=== PATIENT | female | born 1985 | race Caucasian/White ===

== ENCOUNTER 2016-03-09 20:38 | Inpatient (IN) | payer OTHER ==
[2016-03-09] MEDS ORDERED: OXYTOCIN IN LR 500 ML IV ONE (21:31)
[2016-03-09] MEDS ORDERED: IV START KIT ONE (21:34)
[2016-03-09] MEDS ORDERED: OXYTOCIN 10 UNITS/ML VIAL ONE (21:35)
[2016-03-09] MEDS ORDERED: LIDOCAINE 1% (PRES FREE) 30 ML VIAL ONE (21:35)
[2016-03-09] MEDS ORDERED: PUMP TUBING ONE (21:35)
[2016-03-09] MEDS ORDERED: MINERAL OIL 25 ML BOT ONE (21:35)
[2016-03-09] MEDS ORDERED: LIDOCAINE Viscous 2% 15 ML UDCUP ONE (21:35)
[2016-03-09] MEDS: LACTATED RINGERS 1,000 ML IV PRN (22:00)
[2016-03-09] MEDS: ACETAMINOPHEN 325 MG TABLET PO PRN (22:54)
[2016-03-09 23:48] LABS: HEMATOCRIT 33.7 % (37.0-47.0); HEMOGLOBIN 11.1 gm/l (12.0-16.0); MEAN CELL VOLUME 85.3 fl (81.0-99.0); MEAN CORPUSCULAR HEMOGLOBIN 28.1 pg (27.0-31.0); MEAN CORPUSCULAR HGB CONC 32.9 g/dl (33.0-37.0)
[2016-03-10] MEDS: ACETAMINOPHEN 325 MG TABLET PO PRN ×2 (04:38→08:45)
--- NOTE | 2016-03-10 06:30 | HP ---
ABIMBOLA AYALA [id number] DATE OF ADMISSION: March 09, 2016 ADMITTING DIAGNOSES: 1. at term post dates. 2. Recent flu-like syndrome. 3. Category 1 strip. 4. Spontaneous rupture of membranes. 5. Onset of early labor. 6. Negative beta strep status. HISTORY OF PRESENT ILLNESS: Patient is a 31-year-old , white female experiencing her first . She is due on March 05, 2016 which makes her 40 weeks and 4 days. She presents to the birthing center this evening at 8:00 with a history of recent spontaneous rupture of membranes. Fluid is clear. On monitoring, she is having occasional contractions, roughly every four minutes. Category 1 strip with accelerations and moderate variability. Vaginal examination performed by the nurse shows a 1 cm dilated, 70%, approximately a -2/-3 vertex presentation. has been unremarkable. She has been euglycemic, basically normotensive with a single reading of elevation of blood pressure today while she was being seen. She denies any preeclamptic type symptoms. She was recently seen in the office on Saturday for flu-like syndrome and was given promethazine and antidiarrheal medication. She has had approximately a 25 pound weight gain. PAST MEDICAL HISTORY: She has had: 1. Laparoscopy for ovarian cyst. 2. Two surgeries on her right hand/wrist area for a cyst and then carpal tunnel. ALLERGIES: NO KNOWN DRUG ALLERGIES. MEDICATIONS: 1. As noted. 2. Routine vitamins. REVIEW OF SYSTEMS: Is complete and unremarkable. FAMILY HISTORY: Is noncontributory. PHYSICAL EXAM: VITAL SIGNS: Her vital signs are normal on admission. Blood pressure 118/79. Pulse is 100. She is afebrile. ABDOMEN: Gravid uterus measuring 40 cm. Estimated weight of 7.5 to 8 pounds. VAGINAL: Examination performed by the nurse on admission see the History of Present Illness. LABORATORY EVALUATION: On admission, patient's hematocrit is pending. She is negative beta strep status. Hepatitis B screen negative. VDRL, negative. HIV screen, negative. STD screens, negative. Glucose screen within normal limits. She had second trimester screening for aneuploidy which was negative. IMPRESSION: 1. at term post dates. 2. Spontaneous rupture of membranes. 3. Onset of early labor. 4. Category 1 strip. 5. Negative beta strep status. 6. Requesting minimal intervention at this time. PLAN: Patient is admitted and will be started on IV fluids at her request. We will watch the blood pressure particularly closely since she had elevated readings today earlier in the office although at this time it is normal.
--- NOTE | 2016-03-10 08:13 | PDOC36 ---
Provider Note Subject: SROM X12hr Note: contractions mild and 5-6 min, slept at intervals. no discomfort. Category 1 strip. VE by me 2cm, soft 70%, posterior, vtx -3. Recommend augmentation with SROM. They accept recommendation.
[2016-03-10] MEDS ORDERED: LACTATED RINGERS 1,000 ML IV SCH ×2 (08:15→20:43)
[2016-03-10] MEDS: CALCIUM CARBONATE 500 MG TAB.CHEW PO PRN ×4 (08:44→22:01)
[2016-03-10] MEDS ORDERED: MISOPROSTOL 200 MCG TABLET ONE (09:00)
[2016-03-10] MEDS: OXYTOCIN IN LR 500 ML IV PRN ×3 (09:23→21:43)
[2016-03-10] MEDS ORDERED: EPIDURAL PUMP SET ONE (19:35)
[2016-03-10] MEDS ORDERED: FENTANYL/ROPIVACAINE EPIDURAL 250 ML EP ONE (19:36)
--- NOTE | 2016-03-10 19:36 | PDOC36 ---
Provider Note Subject: labor update Note: 24 hr SROM, on pitocin about 8+ hr, u/c reg q3min and intensifying, pt "miserable now" Category 1, VE 3+cm, 70%, -2 IMP: SROM >24hrs, latent phase with some changes in exam Plan: epidural and continue pitocin.
[2016-03-10] MEDS: LACTATED RINGERS 1,000 ML IV PRN (19:49)
[2016-03-10] MEDS ORDERED: FENTANYL/ROPIVACAINE EPIDURAL 250 ML EP SCH (20:00)
[2016-03-10] MEDS ORDERED: EPIDURAL PROCEDURE TRAY ONE (20:19)
[2016-03-10] MEDS ORDERED: LACTATED RINGERS 500 ML IV PRN (20:43)
[2016-03-10] MEDS ORDERED: EPHEDRINE SULFATE 50 MG/ML 1ML VIAL IV PRN (20:43)
[2016-03-10] MEDS ORDERED: METOCLOPRAMIDE HCL 5 MG/ML 2ML VIAL IV PRN (20:43)
[2016-03-10] MEDS ORDERED: DIPHENHYDRAMINE HCL 50 MG/1 ML VIAL IV PRN (20:43)
[2016-03-10] MEDS ORDERED: NALOXONE HCL 0.4 MG/ML VIAL IV PRN (20:43)
[2016-03-10] MEDS ORDERED: ONDANSETRON 4 MG/2ML 2 ML VIAL IV PRN (20:43)
[2016-03-10] MEDS ORDERED: NALBUPHINE HCL 20 MG/ML AMP IV PRN (20:43)
[2016-03-10] MEDS ORDERED: SODIUM CHLORIDE 0.9% 500 ML IV PRN (20:43)
[2016-03-10 20:47] VITALS: BMI 36.5
[2016-03-11] MEDS: OXYTOCIN IN LR 500 ML IV PRN (00:02)
[2016-03-11] MEDS: CALCIUM CARBONATE 500 MG TAB.CHEW PO PRN ×2 (01:42→06:17)
[2016-03-11] MEDS: LACTATED RINGERS 1,000 ML IV PRN (02:00)
[2016-03-11] MEDS ORDERED: FENTANYL 100 MCG/2 ML VIAL ONE ×2 (02:27→08:29)
[2016-03-11] MEDS ORDERED: LORAZEPAM 2 MG/ML 1ML SDV IV ONE (02:27)
[2016-03-11] MEDS ORDERED: ROPIVACAINE 0.5% 30 ML VIAL ONE (02:29)
--- NOTE | 2016-03-11 04:43 | PDOC36 ---
Provider Note Subject: Labor update Note: Complaining of severe pressure and definitely uncomfortable. Wants a c-sec. Category 1 strip, u/c q3min, VE by me, rim on pt right, +1 station, OA some caput, adeq pelvis, EFW 8+. Epidural has been bolused X1 IMP--SROM, slow labor progress, tolerating labor, mom is not-anxious Plan--encourage to initiate pushing, offered dose of IV ativan, if cannot tolerate will have SECURITY TECHNICIAN bolus to relieve lower pelvic "pressure". labor "down". Currently c-sec crew awaiting who is pushing now. Will deliver thereafter either as operative vaginal del or primary c-sec
[2016-03-11] MEDS ORDERED: NITROGLYCERIN IV ONE (08:17)
[2016-03-11] MEDS ORDERED: DEXTROSE IV ONE (08:17)
[2016-03-11] MEDS ORDERED: ROPIVACAINE 0.75% 20 ML AMP ONE ×2 (08:26→10:46)
[2016-03-11] MEDS ORDERED: MORPHINE SULFATE (DURAMORPH) 1 MG/ML 10ML AMP ONE (08:27)
[2016-03-11] MEDS ORDERED: CEFAZOLIN SODIUM 1,000 MG VIAL ONE (08:43)
[2016-03-11] MEDS ORDERED: EPHEDRINE SULFATE UD SYR 25 MG 25 MG/5 ML SYRINGE IV ONE ×2 (08:45→09:23)
[2016-03-11] MEDS ORDERED: OXYTOCIN 10 UNITS/ML VIAL ONE ×5 (08:52→09:45)
[2016-03-11] MEDS ORDERED: ONDANSETRON 4 MG/2ML 2 ML VIAL ONE (09:07)
[2016-03-11] MEDS ORDERED: DIPHENHYDRAMINE HCL 50 MG/1 ML VIAL ONE (09:07)
[2016-03-11] MEDS ORDERED: METHYLENE BLUE 1% 1ML VIAL ONE (09:39)
[2016-03-11] MEDS ORDERED: KETOROLAC TROMETHAMINE 30 MG/ML 1 ML VIAL ONE (09:54)
[2016-03-11] MEDS ORDERED: ONDANSETRON 4 MG/2ML 2 ML VIAL IV PRN ×2 (10:28→11:15)
[2016-03-11] MEDS ORDERED: OXYTOCIN IN LR 500 ML IV ONE (10:28)
[2016-03-11] MEDS ORDERED: OXYCODONE HCL 5 MG TABLET PO PRN (10:28)
[2016-03-11] MEDS ORDERED: LANOLIN 50 APPLIC/7G TUBE TP PRN (10:28)
[2016-03-11] MEDS ORDERED: DIPHENHYDRAMINE HCL 25 MG CAPSULE PO PRN (10:28)
[2016-03-11] MEDS ORDERED: MEASLES,MUMPS&RUBELLA VACCINE 0.5 ML VIAL SUB-Q V ONE (10:28)
[2016-03-11] MEDS ORDERED: PROMETHAZINE HCL 25 MG/ML VIAL IM PRN ×2 (10:28→11:15)
[2016-03-11] MEDS ORDERED: DIPHENHYDRAMINE HCL 50 MG/1 ML VIAL IV PRN ×2 (10:28→11:15)
[2016-03-11] MEDS ORDERED: DIPHTH,PERTUSS(ACELL),TET VAC 0.5 ML VIAL IM V ONE (10:28)
[2016-03-11] MEDS ORDERED: LACTATED RINGERS 1,000 ML IV SCH (10:30)
--- NOTE | 2016-03-11 10:40 | PDOC37 ---
Procedure: primary Section Date of Procedure: 03/11/16 Start Time: 8:30 Preoperative Diagnosis: 1. 40 week intrauterine . 2. failure of descent ,impacted head Postoperative Diagnosis: Same plus nuchal cord X2 Surgeon: Chintan Wheeler Assist: Zoe River Indication for Procedure: 31 year old, at 40 weeks 4 days with failure to progress Anesthesia: epidural with Duramorph Complications: None Estimated Blood Loss:1000 mLs IV Fluids: 1000 mLs of LR Medications: 2 gm of Ancef for routine prophylaxis. 40 units of Pitocin. cytotec 600mg pr Urine Output: 250 mLs of clear urine, prieto kinked and not functioning during entry into abd, distended and compromising visualization and safety of surgery so incidental cystomy in dome done to decompress bladder. repaired and 350cc water tight test negative Findings: Fluid . Normal uterus, ovaries, and tubes. Procedure: The patient was taken to the operating room where epidural anesthesia was found to be adequate. She was then prepared and draped in the normal sterile fashion in the dorsal supine position with a leftward tilt. A timeout was performed. A Pfannensteil skin incision was then made with the scalpel and carried through to the underlying layer of fascia with the bovie. The fascia was incised in the midline and the incision extended laterally with the Ma scissors. The superior aspect of the fascial incision was then grasped with the Crystal clamps, elevated, and the underlying rectus muscles dissected off bluntly and sharply where needed. Attention was then turned to the inferior aspect of the incision which, in a similar fashion, was grasped, tented up with the Crystal clamps, and the rectus muscle dissected off bluntly and sharply with Ma scissors. The rectus muscles were then in the midline, and the peritoneum was identified and entered bluntly. The peritoneal incision was then extended with good visualization of the bladder. The bladder blade was then inserted and the vesicouterine peritoneum identified, grasped with pick- ups and entered sharply with the Metzenbaum scissors. The incision was then extended laterally and the bladder flap created digitally. The bladder blade was then reinserted and the lower uterine segment incised in a transverse fashion with the scalpel. The uterine incision was then extended laterally by pulling superolaterally on both sides. Membranes were ruptured and fluid was clear. The bladder blade was removed the 's head was flexed out of position and delivered atraumatically. The nose and mouth were suctioned with bulb suction and the cord was clamped and cut. The infant was handed off to the waiting staffing mgr. The placenta was then delivered with gentle cord traction. The uterus was then exteriorized and cleared of all clots and debris. The uterine incision was repaired with 0 vicryl in a running, locked fashion. A second layer of the same suture was used in an imbricating fashion to obtain excellent hemostasis. The gutters were cleared of all clots. The uterus was returned to the abdomen. Thr cystomy was oversewed with 000 chromic. Water tight test with 350cc of methylene blue in NS used The fascia was reapproximated with 0 Vicryl in a running fashion. The subcutaneous tissue was reapproximated with 000plain. The skin was closed with continuous 0000 vicryl The patient tolerated the procedure well. Sponge, lap and needle counts were correct times three. A debriefing was held at the end of the procedure with anesthesia and nursing staff. The patient was taken to the recovery room in stable condition.
[2016-03-11] MEDS ORDERED: HYDROMORPHONE HCL 1 MG/ML SYRINGE IV PRN (11:07)
[2016-03-11] MEDS ORDERED: EPHEDRINE SULFATE 50 MG/ML 1ML VIAL IV PRN (11:15)
[2016-03-11] MEDS ORDERED: NALOXONE HCL 0.4 MG/ML VIAL IV PRN (11:15)
[2016-03-11] MEDS ORDERED: NALBUPHINE HCL 20 MG/ML AMP IV PRN (11:15)
--- NOTE | 2016-03-11 11:50 | OP ---
ABIMBOLA AYALA [id number] DATE OF : 1985 DATE OF OPERATION: 02/08/2017 PREOPERATIVE DIAGNOSES: 1. at postdates with spontaneous rupture of membranes greater than 24 hours failure to progress. 2. Maternal exhaustion. POSTOPERATIVE DIAGNOSES: 1. at postdates with spontaneous rupture of membranes greater than 24 hours failure to progress. 2. Maternal exhaustion. 3. Nuchal cord around the neck twice tight. 4. Failure of Porter catheter to drain bladder adequately intraoperatively requiring drainage of bladder via a cystotomy. 5. Uterine atony mgmt. with cytotec 6. impacted head. PERSONNEL: Chintan Wheeler M.D. GENERATION TECHNICIAN: MAGGY Hutchison ANESTHESIA: Epidural with Duramorph. ANTIBIOTICS: Ancef 2 grams. PROCEDURE DONE: Primary low transverse section, and cystotomy in the dome of the bladder subsequently repaired water test type negative at 350 mL with methylene blue normal saline. DESCRIPTION OF PROCEDURE: The patient was brought to the operating room. She had sequential compression device already inserted. Porter was inside. Because of the impacted head of concern, I placed the "snorke" along the sacral hallow and the posterior part of the head. This was done to help facilitate the delivery from above. She was prepped and draped in a sterile manner. A time out was performed. She had good level of anesthetic, and the procedure was then initiated with making a small curvilinear incision over the lower abdomen. Tissues were dissected sharply and then dissected bluntly with the fingers. Fascia was opened transversely. Muscles were split. The peritoneum is opened carefully. Bladder was attached high on the lower uterine segment.The distended bladder was making visualization difficulty. Attempts at manipulating the Porter in order to provide drainage was unsuccessful. It was decided for both visualization and safety, and without making additional injury to the bladder to do an cystotomy in the dome of the bladder in order to drain it. This was done with a knife in kind of an angle so that there was no direct hole made right in the bladder from the overlying tissue, but rather kind staggered way. This provided improved visualization. The Jere retractor was then placed in the abdomen. Incision was then made across the lower uterine segment extended laterally with the fingers. Membranes were ruptured. The fluid was cleared. Baby at this point could be relatively easily brought up and the head was flexed and with fundal pressure the baby was easily delivered. It had good tone, color, cry, and had a good heart rate. Cord was then milked, and then clamped and then delivered to awaiting pediatric nurse. Apgars 8 and 9. Placenta was then removed with traction and massage of the uterus. The uterus was fairly flaccid in spite of Pitocin administration and then subsequently bled more than normal. Cytotec was then used and placed 600 mg,( one of the tablets was lost in the drapes), so a total of 600 mg was placed per rectum. This provided better uterine tone. The uterus was then closed in two layers. The first running with a 0 Vicryl locked suture from corner to corner. A subsequent suture was then placed. There was one small bladder near the lower edge of the lower uterine segment at the reflection of the bladder. This was individually identified and then sutured.with 000 vicryl Good hemostasis at this point. The incidental cystotomy entry point was identified and over sewed with a single over sewed suture of 3-0 Chromic Knot being tied extra vesicle. A water test was then performed using some methylene blue and 1000 mL of saline and approximately 350 mL of additional fluid were then injected into the bladder, ballooned up. There was no leakage. It was a negative test. The bladder would not decompress. Again, the catheter was kinked and so it was removed. We then had to suture the fascia edges around the somewhat distended bladder. This was done without difficulty. Subcutaneous tissues were then approximated with a continuous running 3-0 plain and the skin was then approximated on a Jesse needle with a 4-0 Vicryl subcuticular closure. Dressing and Steri-Strips were then placed. A new Porter catheter was then reinserted under sterile conditions with evidence of copious amounts of urinary drainage, and a bluish brownish coloration consistent with the maneuvers that had been carried out earlier. Patient was aware of this situation and that a Porter catheter would need to have at least a minimum of 3 days continuous drainage. Estimated blood loss was 1000 mL, but the patient was well compensated. Tape counts, sponge counts, instrument counts were all correct at the completion of the procedure. She was awakened and taken to the recovery room in satisfactory condition. SVEN/vadim
[2016-03-11] MEDS: OXYCODONE/ACETAMINOPHEN 5/325 MG TABLET PO PRN ×3 (15:13→22:27)
[2016-03-11] MEDS: KETOROLAC TROMETHAMINE 30 MG/ML 1 ML VIAL IV SCH ×2 (16:13→22:28)
[2016-03-11] MEDS: DOCUSATE SODIUM 100 MG CAPSULE PO SCH (22:27)
[2016-03-12] MEDS: OXYCODONE/ACETAMINOPHEN 5/325 MG TABLET PO PRN ×5 (02:49→20:18)
[2016-03-12] MEDS: KETOROLAC TROMETHAMINE 30 MG/ML 1 ML VIAL IV SCH (04:51)
--- NOTE | 2016-03-12 06:39 | PDOC44 ---
- Subjective Day: 1 Reports Pain Tolerable, Reports - Objective Temp Pulse Resp BP Pulse Ox 98.2 F 96 16 97/57 98 03/12/16 02:30 03/12/16 02:30 03/12/16 02:30 03/12/16 02:30 03/11/16 12:12 Current Medications Generic Name Dose Route Start Last Admin Trade Name Freq PRN Reason Stop Dose Admin Diphenhydramine HCl 25 - 50 mg 03/11/16 10:28 Benadryl PO Q6H PRN Itching (Mild/Moderate) Diphenhydramine HCl 25 - 50 mg 03/11/16 10:28 Benadryl IV Q6H PRN Itching (Severe) Diphenhydramine HCl 25 - 50 mg 03/11/16 11:15 Benadryl IV 03/12/16 10:00 Q4H PRN Itching Docusate Sodium 100 mg 03/11/16 21:00 03/11/16 22:27 Colace PO 100 mg BID JEAN Administration Emollient Ointment 1 applic 03/11/16 10:28 [id number] TP PRN PRN sore nipples Ephedrine Sulfate 5 - 10 mg 03/11/16 11:15 Ephedrine Sulfate IV 03/12/16 10:00 Q5M PRN Ferrous Sulfate 325 mg 03/12/16 09:00 Ferrous Sulfate PO DAILY JEAN Hydromorphone HCl 0.25 - 0.5 mg 03/11/16 11:07 Dilaudid IV Q5M PRN Pain (Breakthrough) Ropivacaine/Fentanyl/NS 250 mls @ 0 mls/hr 03/10/16 20:00 Fentanyl 2 Mcg/Ml + Ropivacaine 0.125% Ep Bag EP EPI JEAN Protocol Per Protocol Lactated Ringer's 1,000 mls @ 125 mls/hr 03/11/16 10:30 Lactated Ringers IV .Q8H JEAN Ibuprofen 800 mg 03/11/16 16:00 Motrin PO Q6H PRN Pain Ketorolac Tromethamine 30 mg 03/12/16 10:00 Toradol IV 03/16/16 09:59 Q6H PRN Pain (Mild/Moderate) Ketorolac Tromethamine 30 mg 03/11/16 16:00 03/12/16 04:51 Toradol IV 03/12/16 15:59 30 mg Q6H JEAN Administration Multivi/Iron Carb/Fe Sulf/FA/Prenat 1 tab 03/12/16 09:00 Plus PO DAILY JEAN Nalbuphine HCl 1 - 5 mg 03/11/16 11:15 Nubain IV 03/12/16 10:00 Q4H PRN Itching Naloxone HCl 0.2 - 0.4 mg 03/11/16 11:15 Narcan IV 03/12/16 10:00 Q5M PRN Ondansetron HCl 4 mg 03/11/16 10:28 Zofran IV Q6H PRN Nausea/Vomiting Ondansetron HCl 4 mg 03/11/16 11:15 Zofran IV 03/12/16 10:00 Q6H PRN Nausea/Vomiting Oxycodone HCl 5 - 10 mg 03/11/16 10:28 Roxicodone PO Q3H PRN Pain (Severe) Oxycodone/Acetaminophen 1 - 2 tab 03/11/16 10:28 03/12/16 02:49 Percocet 5/325 PO 1 tab Q4H PRN Administration Pain (Moderate) Promethazine HCl 25 mg 03/11/16 10:28 Phenergan IM Q6H PRN Nausea/Vomiting Promethazine HCl 6.25 - 12.5 mg 03/11/16 11:15 Phenergan IM 03/12/16 10:00 Q4H PRN Nausea/Vomiting Sodium Chloride 10 ml 03/11/16 10:28 03/12/16 04:51 Normal Saline 10ml Flush IV 10 ml PRN PRN Administration IV Flush - Physical Exam General: Afebrile Psych/Mental Status: Mood/Affect Appropriate, Judgment/Insight Intact Lungs: Normal Air Movement Breast: Soft, Skin intact Fundus: Firm with Massage Abdomen: Normal Bowel Sounds Skin: Normal Color Wound CURER FOAM RUBBER: Dressing in Place, Dressing Clean/Dry/Intact - Problems:Assessment/Plan (1) delivery delivered Status: Acute Assessment/Plan: leave prieto in for continuous drainage following cystomy (repaired) (2) Postoperative anemia due to acute blood loss Status: Acute Disposition: Stable
[2016-03-12 07:22] LABS: HEMATOCRIT 25.8 % (37.0-47.0); HEMOGLOBIN 8.3 gm/l (12.0-16.0); MEAN CELL VOLUME 86.9 fl (81.0-99.0); MEAN CORPUSCULAR HEMOGLOBIN 27.9 pg (27.0-31.0); MEAN CORPUSCULAR HGB CONC 32.2 g/dl (33.0-37.0); RED CELL DISTRIBUTION WIDTH 13.4 % (11.5-14.5)
--- NOTE | 2016-03-12 07:26 | PDOC44 ---
- Subjective Day: 1 Reports Flatus, Reports Pain Tolerable, Reports , Reports Lochia Light, Reports Tolerating Regular Diet, Reports Other (has been ambulating yesterday, feels fatigued but no dizziness), Denies Nausea, Denies Vomiting, Denies Fever - Objective Temp Pulse Resp BP Pulse Ox 98.5 F 100 16 96/52 98 03/12/16 06:34 03/12/16 06:34 03/12/16 06:34 03/12/16 06:34 03/11/16 12:12 Lab Results 03/12/16 06:15 WBC 17.0 H RBC 2.97 L Hgb 8.3 L Hct 25.8 L Plt Count 194 03/12/16 06:15 MCHC 32.2 L Current Medications Generic Name Dose Route Start Last Admin Trade Name Freq PRN Reason Stop Dose Admin Diphenhydramine HCl 25 - 50 mg 03/11/16 10:28 Benadryl PO Q6H PRN Itching (Mild/Moderate) Diphenhydramine HCl 25 - 50 mg 03/11/16 10:28 Benadryl IV Q6H PRN Itching (Severe) Diphenhydramine HCl 25 - 50 mg 03/11/16 11:15 Benadryl IV 03/12/16 10:00 Q4H PRN Itching Docusate Sodium 100 mg 03/11/16 21:00 03/11/16 22:27 Colace PO 100 mg BID JEAN Administration Emollient Ointment 1 applic 03/11/16 10:28 [id number] TP PRN PRN sore nipples Ephedrine Sulfate 5 - 10 mg 03/11/16 11:15 Ephedrine Sulfate IV 03/12/16 10:00 Q5M PRN Ferrous Sulfate 325 mg 03/12/16 09:00 Ferrous Sulfate PO DAILY JEAN Hydromorphone HCl 0.25 - 0.5 mg 03/11/16 11:07 Dilaudid IV Q5M PRN Pain (Breakthrough) Ropivacaine/Fentanyl/NS 250 mls @ 0 mls/hr 03/10/16 20:00 Fentanyl 2 Mcg/Ml + Ropivacaine 0.125% Ep Bag EP EPI JEAN Protocol Per Protocol Lactated Ringer's 1,000 mls @ 125 mls/hr 03/11/16 10:30 Lactated Ringers IV .Q8H JEAN Ibuprofen 800 mg 03/11/16 16:00 Motrin PO Q6H PRN Pain Ketorolac Tromethamine 30 mg 03/12/16 10:00 Toradol IV 03/16/16 09:59 Q6H PRN Pain (Mild/Moderate) Ketorolac Tromethamine 30 mg 03/11/16 16:00 03/12/16 04:51 Toradol IV 03/12/16 15:59 30 mg Q6H JEAN Administration Multivi/Iron Carb/Fe Sulf/FA/Prenat 1 tab 03/12/16 09:00 Plus PO DAILY JEAN Nalbuphine HCl 1 - 5 mg 03/11/16 11:15 Nubain IV 03/12/16 10:00 Q4H PRN Itching Naloxone HCl 0.2 - 0.4 mg 03/11/16 11:15 Narcan IV 03/12/16 10:00 Q5M PRN Ondansetron HCl 4 mg 03/11/16 10:28 Zofran IV Q6H PRN Nausea/Vomiting Ondansetron HCl 4 mg 03/11/16 11:15 Zofran IV 03/12/16 10:00 Q6H PRN Nausea/Vomiting Oxycodone HCl 5 - 10 mg 03/11/16 10:28 Roxicodone PO Q3H PRN Pain (Severe) Oxycodone/Acetaminophen 1 - 2 tab 03/11/16 10:28 03/12/16 06:36 Percocet 5/325 PO 1 tab Q4H PRN Administration Pain (Moderate) Promethazine HCl 25 mg 03/11/16 10:28 Phenergan IM Q6H PRN Nausea/Vomiting Promethazine HCl 6.25 - 12.5 mg 03/11/16 11:15 Phenergan IM 03/12/16 10:00 Q4H PRN Nausea/Vomiting Sodium Chloride 10 ml 03/11/16 10:28 03/12/16 04:51 Normal Saline 10ml Flush IV 10 ml PRN PRN Administration IV Flush - Physical Exam General: Afebrile, No Acute Distress Fundus: Firm, At Umbilicus Abdomen: Hypoactive Bowel Sounds, Tenderness (appropriately tender), No Distention Genitourinary: Indwelling Urinary Cath (prieto - clear urine) Wound ONLINE MEDIA DIRECTOR: Dressing Clean/Dry/Intact Disposition: Stable (incidental cystotomy - continue prieto catheter. may up and ambulate, shower. iron for anemia, no transfusion at this time.)
[2016-03-12] MEDS: PRENATAL VIT/FE FUMARATE/FA 1 TABLET PO SCH (09:10)
[2016-03-12] MEDS: FERROUS SULFATE (65 Fe) 325 MG TABLET PO SCH (09:10)
[2016-03-12] MEDS: DOCUSATE SODIUM 100 MG CAPSULE PO SCH ×2 (09:10→20:48)
[2016-03-12] MEDS ORDERED: KETOROLAC TROMETHAMINE 30 MG/ML 1 ML VIAL IV PRN (10:00)
[2016-03-12] MEDS: IBUPROFEN 800 MG TABLET PO PRN ×3 (10:33→22:14)
[2016-03-12] MEDS ORDERED: LOPERAMIDE HCL 2 MG CAPSULE PO ONE (14:03)
[2016-03-13] MEDS: OXYCODONE/ACETAMINOPHEN 5/325 MG TABLET PO PRN ×6 (00:24→23:31)
[2016-03-13] MEDS: IBUPROFEN 800 MG TABLET PO PRN ×3 (04:40→19:15)
--- NOTE | 2016-03-13 07:17 | PDOC44 ---
- Subjective Day: 2 Reports Flatus, Reports Pain Tolerable, Reports , Reports Lochia Light, Reports Tolerating Regular Diet, Reports Other (able to ambulate and shower), Denies Nausea, Denies Vomiting, Denies Fever - Objective Temp Pulse Resp BP Pulse Ox 98.2 F 86 16 97/57 98 03/13/16 02:19 03/13/16 02:19 03/13/16 02:19 03/13/16 02:19 03/11/16 12:12 Lab Results 03/12/16 06:15 WBC 17.0 H RBC 2.97 L Hgb 8.3 L Hct 25.8 L Plt Count 194 03/12/16 06:15 MCHC 32.2 L Current Medications Generic Name Dose Route Start Last Admin Trade Name Freq PRN Reason Stop Dose Admin Diphenhydramine HCl 25 - 50 mg 03/11/16 10:28 Benadryl PO Q6H PRN Itching (Mild/Moderate) Diphenhydramine HCl 25 - 50 mg 03/11/16 10:28 Benadryl IV Q6H PRN Itching (Severe) Docusate Sodium 100 mg 03/11/16 21:00 03/12/16 20:48 Colace PO Not Given BID JEAN Emollient Ointment 1 applic 03/11/16 10:28 03/12/16 11:53 [id number] TP 1 applic PRN PRN Administration sore nipples Ferrous Sulfate 325 mg 03/12/16 09:00 03/12/16 09:10 Ferrous Sulfate PO 325 mg DAILY JEAN Administration Hydromorphone HCl 0.25 - 0.5 mg 03/11/16 11:07 Dilaudid IV Q5M PRN Pain (Breakthrough) Ropivacaine/Fentanyl/NS 250 mls @ 0 mls/hr 03/10/16 20:00 Fentanyl 2 Mcg/Ml + Ropivacaine 0.125% Ep Bag EP EPI JEAN Protocol Per Protocol Lactated Ringer's 1,000 mls @ 125 mls/hr 03/11/16 10:30 Lactated Ringers IV .Q8H JEAN Ibuprofen 800 mg 03/11/16 16:00 03/13/16 04:40 Motrin PO 800 mg Q6H PRN Administration Pain Ketorolac Tromethamine 30 mg 03/12/16 10:00 Toradol IV 03/16/16 09:59 Q6H PRN Pain (Mild/Moderate) Multivi/Iron Carb/Fe Sulf/FA/Prenat 1 tab 03/12/16 09:00 03/12/16 09:10 Plus PO 1 tab DAILY JEAN Administration Ondansetron HCl 4 mg 03/11/16 10:28 Zofran IV Q6H PRN Nausea/Vomiting Oxycodone HCl 5 - 10 mg 03/11/16 10:28 Roxicodone PO Q3H PRN Pain (Severe) Oxycodone/Acetaminophen 1 - 2 tab 03/11/16 10:28 03/13/16 04:41 Percocet 5/325 PO 2 tab Q4H PRN Administration Pain (Moderate) Promethazine HCl 25 mg 03/11/16 10:28 Phenergan IM Q6H PRN Nausea/Vomiting Sodium Chloride 10 ml 03/10/16 20:43 03/13/16 00:25 Normal Saline 10ml Flush IV 10 ml Q8HR JEAN Administration Sodium Chloride 10 ml 03/11/16 10:28 03/12/16 04:51 Normal Saline 10ml Flush IV 10 ml PRN PRN Administration IV Flush - Physical Exam General: Afebrile, No Acute Distress Fundus: Firm, Below Umbilicus Abdomen: Normal Bowel Sounds, No Tenderness, No Distention Wound SIGNWRITER: Well Approximated, No Drainage, No Erythema, No Rash Disposition: Stable, Anticipate DC Home Tomorrow (june d/c tomorrow. plan for prieto with leg bag x 7 days, will remove next saturday and also incision check. rx percocet, motrin, iron.)
[2016-03-13] MEDS: PRENATAL VIT/FE FUMARATE/FA 1 TABLET PO SCH (15:10)
[2016-03-13] MEDS: FERROUS SULFATE (65 Fe) 325 MG TABLET PO SCH (15:10)
[2016-03-13] MEDS: DOCUSATE SODIUM 100 MG CAPSULE PO SCH (21:38)
[2016-03-14] MEDS: IBUPROFEN 800 MG TABLET PO PRN ×2 (03:55→11:43)
[2016-03-14] MEDS: OXYCODONE/ACETAMINOPHEN 5/325 MG TABLET PO PRN ×2 (03:55→11:43)
--- NOTE | 2016-03-14 07:35 | PDOC39B ---
Hospital Course: ADMIT DATE: 03/09/16 DISCHARGE DATE: 03/14/16 ADMISSION DIAGNOSES: term , labor, failure to progress PROCEDURES: primary low transverse c/section, incidental cystotomy HISTORY OF PRESENT ILLNESS: 31 year old G1 T0 L0 at 40 weeks 6 days presenting with labor. HOSPITAL COURSE: The patient had failure to progress with arrest of descent, impacted head. During primary low transverse c/section, was noted to have a full bladder. An incidental cystotomy was made. Baby female, 7lbs 2oz 8 /9 apgars delivered. Postoperatively patient had a hgb=8.3, however asymptomatic. Patient was continued on prieto catheter with clear output. Patient was dischaged on postoperative day #3 in stable condition. By day of discharge the patient is ambulating, eating, and passing flatus without difficulty. Pain is controlled and lochia is appropriate. She is [ ]. Patient will be discharged with catheter and legbag x 7 days and will be removed on Saturday. Prescriptions for percocet, iron, and motrin given. - Physical Exam Vital Signs: Temp Pulse Resp BP Pulse Ox 98.3 F 80 16 108/62 98 03/14/16 03:53 03/14/16 03:53 03/14/16 03:53 03/14/16 03:53 03/11/16 12:12 - Discharge Plan Additional Instructions: Pt to be discharged with prieto / leg bag. To be removed next saturday. Prescriptions: Ibuprofen [Motrin] 800 mg PO Q6H PRN #30 tablet PRN Reason: Pain FERROUS SULFATE (65 Fe) [IRON FERROUS SULFATE 325 MG TABLET (SHF)] 325 mg PO BID #60 tab Oxycodone HCl/Acetaminophen [PERCOCET 5/325 MG TABLET (SHF)] 1 - 2 tab PO Q4H PRN #40 tab PRN Reason: Pain Follow-Up: Marvin Lee MD [Primary Care Provider] - In 7-10 days (f/u saturday in office to remove catheter)
[2016-03-14 07:53] VITALS: BP 112/70
[2016-03-14] MEDS: PRENATAL VIT/FE FUMARATE/FA 1 TABLET PO SCH (09:42)
[2016-03-14] MEDS: FERROUS SULFATE (65 Fe) 325 MG TABLET PO SCH (09:42)
== END 2016-03-14 13:15 | disposition home or self-care (01) | DRG 765 ==
LOC: FBCOUT 20:38 → FBC 20:38 → FBCOUT 21:30 → FBC 21:30
PROVIDERS: ADMIT Obstetrics & Gynecology; ATTEND Obstetrics & Gynecology
PROC: 10D00Z1 Extraction of Products of Conception, Low, Open Approach (ICD-10-PCS; principal; 2016-03-11)
DX: O75.89 Other specified complications of labor and delivery (principal); N99.71 Accidental puncture and laceration of a genitourinary system organ or structure during a genitourinary system procedure; D62 Acute posthemorrhagic anemia; O62.1 Secondary uterine inertia; Z3A.41 41 weeks gestation of pregnancy; Z37.0 Single live birth; O32.4XX0 Maternal care for high head at term, not applicable or unspecified; O99.02 Anemia complicating childbirth; O69.81X0 Labor and delivery complicated by cord around neck, without compression, not applicable or unspecified

== ENCOUNTER 2016-03-16 12:58 | Outpatient (CLI) | payer OTHER | END 2016-03-16 12:59 | disposition home or self-care (01) | LOC: BABIESSH 12:58 | PROVIDERS: ATTEND Obstetrics & Gynecology | DX: Z39.1 Encounter for care and examination of lactating mother (principal) ==

== ENCOUNTER 2016-03-23 11:20 | Outpatient (CLI) | payer OTHER | END 2016-03-23 11:21 | disposition home or self-care (01) | LOC: BABIESSH 11:20 | PROVIDERS: ATTEND Obstetrics & Gynecology | DX: Z39.1 Encounter for care and examination of lactating mother (principal) ==

== ENCOUNTER 2016-03-26 14:03 | Outpatient (CLI) | payer OTHER | END 2016-03-26 14:04 | disposition home or self-care (01) | LOC: BABIESSH 14:03 | PROVIDERS: ATTEND Obstetrics & Gynecology | DX: Z39.1 Encounter for care and examination of lactating mother (principal) ==

== ENCOUNTER 2016-03-30 12:56 | Outpatient (CLI) | payer OTHER | END 2016-03-30 12:57 | disposition home or self-care (01) | LOC: BABIESSH 12:56 | PROVIDERS: ATTEND Obstetrics & Gynecology | DX: Z39.1 Encounter for care and examination of lactating mother (principal) ==

== ENCOUNTER 2016-04-06 15:03 | Outpatient (CLI) | payer OTHER | END 2016-04-06 15:04 | disposition home or self-care (01) | LOC: BABIESSH 15:03 | PROVIDERS: ATTEND Obstetrics & Gynecology | DX: Z39.1 Encounter for care and examination of lactating mother (principal) ==

== ENCOUNTER 2016-04-11 12:54 | Outpatient (CLI) | payer OTHER | END 2016-04-11 12:55 | disposition home or self-care (01) | LOC: BABIESSH 12:54 | PROVIDERS: ATTEND Family Medicine | DX: Z39.1 Encounter for care and examination of lactating mother (principal) ==